=== PATIENT | female | born 1990 | race Caucasian/White ===

== ENCOUNTER → 2023-05-29 11:18 | Outpatient (REF) | payer OTHER, SELFPAY | LOC: HWRAD 11:18 | PROVIDERS: ATTENDING PHYSICIAN Urology; FAMILY PHYSICIAN Family Medicine | DX: N20.0 Calculus of kidney (principal) | CPT/HCPCS: 74018; 76775 ==

== ENCOUNTER → 2023-10-24 12:21 | Outpatient (REF) | payer OTHER, SELFPAY | LOC: HWRAD 12:21 | PROVIDERS: ATTENDING PHYSICIAN Specialist; FAMILY PHYSICIAN Family Medicine | DX: N20.0 Calculus of kidney (principal) | CPT/HCPCS: 74018 ==